=== PATIENT | male | born 2000 | race Caucasian/White ===

== ENCOUNTER 2023-08-26 06:22 | Emergency (ER) | payer MEDICAID ==
[~2023-08-26] VITALS: Ht 177.8 cm; Wt 94.0 kg
[2023-08-26 07:30] VITALS: BP 113/70
--- OUTSIDE RECORDS SUMMARY | 2023-08-26 07:54 | XMS ---
PreManage Notification: NORMA GONZALES Security Pest Control Applicator Events No recent Security Events currently on file CRITERIA MET - [facility] - 2 Visits in 30 Days - [facility] - 3 Facilities in 90 Days CARE PROVIDERS RUBY SCHNEIDER Counselor Current PHONE: [phone] CLEMENT FOLEY Internal Medicine Current PHONE: Unknown Jacobo has no Care Guidelines for this patient. E.Teresita VISIT COUNT (12 MO.) 3 [facility] [place] [address] [place], [place] [address]Hyndman HAnanda Ashok Salinas TOTAL 5 NOTE: Visits indicate total known visits. ED/UCC VISIT TRACKING (12 MO.) 08/26/2023 06:[address] [facility] TYPE: Emergency COMPLAINT: - COUGH 08/23/2023 23:40 [facility] DIAGNOSES: - Anxiety disorder, unspecified - Insomnia, unspecified - TROUBLE SLEEPING 08/23/2023 20:54 [facility] TYPE: Emergency DIAGNOSES: - Anxiety - Chest Pain; Anxiety - Insomnia 08/23/2023 11:14 [facility] TYPE: Emergency DIAGNOSES: - Intercostal pain - Other chest pain - Chest Pain - Chest pain pressure 12/18/2022 02:38 [facility] TYPE: Emergency DIAGNOSES: - Generalized anxiety disorder - Poisoning by cannabis, accidental (unintentional), initial encounter - Ingestion - Panic Attack INPATIENT VISIT TRACKING (12 MO.) No inpatient visits to display in this time frame [email or web address]
[2023-08-26] MEDS ORDERED: OMEPRAZOLE20 M2 PO (23:51)
[2023-08-26] MEDS ORDERED: HYDROXYZINE HCL25 MG PO (23:51)
== END 2023-08-26 07:31 | disposition home or self-care (01) ==
LOC: ED 06:22
DX: R05.9 Cough, unspecified (principal)
CPT/HCPCS: 99283